=== PATIENT | male | born 1985 | race Caucasian/White ===

== ENCOUNTER 2016-10-14 16:38 | Inpatient (IN) | payer MEDICAID ==
[~2016-10-14] VITALS: Ht 182.9 cm; Wt 67.1 kg
[~2016-10-14 16:38] MED LIST: TRAM50TA92 PO
[2016-10-14 16:40] VITALS: BP_SYST 125
[2016-10-14] MEDS ORDERED: NACL 0.9% 1,000 ML IV ONE ×2 (16:42→18:30)
[2016-10-14] MEDS ORDERED: ONDANSETRON HCL 4 MG/2 ML VIAL IVP ONE (16:45)
[2016-10-14] MEDS ORDERED: MORPHINE 2 MG/ML INJ. SYRINGE IVP ONE (16:45)
[2016-10-14] MEDS ORDERED: KETOROLAC TROMETHAMINE 30 MG VIAL IVP ONE (16:45)
[2016-10-14 17:15] LABS: BASOPHILS % (AUTO) 0.3 % (0.0-2.0); HEMOGLOBIN 15.4 g/dL (14.0-18.0); LYMPHOCYTES # (AUTO) 0.6 K/uL (1.0-5.5); LYMPHOCYTES % (AUTO) 3.8 % (20.5-51.5); MEAN CORPUSCULAR HEMOGLOBIN 33 pg (27-31); MEAN CORPUSCULAR HGB CONC 34 % (32-36); MEAN CORPUSCULAR VOLUME 97 fL (79.0-98.0); MONOCYTES # (AUTO) 0.7 K/uL (0.0-1.0); MONOCYTES % (AUTO) 4.9 % (1.7-9.3); NEUTROPHILS # (AUTO) 13.9 K/uL (1.8-7.7); PLATELET COUNT (AUTO) 213 K/uL (130-430); RED BLOOD CELL COUNT(AUTO) 4.74 MIL/uL (4.2-6.2); RED CELL DISTRIBUTION WIDTH 11.7 % (9.0-15.0); WHITE BLOOD COUNT (AUTO) 15.2 K/uL (4.8-10.8)
[2016-10-14 17:24] LABS: CREATININE 1.47 mg/dL (0.55-1.30); POTASSIUM 3.7 mmol/L (3.5-5.1)
[2016-10-14 17:28] LABS: ALBUMIN 5.4 g/dL (3.4-4.8); INR 1.1 (0.80-1.20); PROTHROMBIN TIME 11.6 SECS (9.5-12.5); TOTAL BILIRUBIN 0.5 mg/dL (0.0-1.0); TOTAL PROTEIN, SERUM 9.1 g/dL (6.4-8.3)
[2016-10-14] MEDS ORDERED: METOCLOPRAMIDE HCL 10 MG/2 ML VIAL IVP ONE (17:45)
[2016-10-14] MEDS ORDERED: DIPHENHYDRAMINE INJ 50 MG/ML VIAL IVP ONE (17:45)
[2016-10-14 19:52] LABS: BILIRUBIN,URINE 2+ (NEGATIVE); BLOOD, URINE NEGATIVE (NEGATIVE); CLARITY/URINE CLOUDY (CLEAR); GLUCOSE,URINE NEGATIVE (NEGATIVE); KETONES,URINE TRACE (NEGATIVE); LEUKOCYTE ESTERASE ,URINE NEGATIVE (NEGATIVE); NITRITE, URINE NEGATIVE (NEGATIVE); PH,URINE 6.5 (5.0-8.0); PROTEIN URINE 3+ (NEGATIVE)
[2016-10-14 19:53] LABS: COLOR,URINE AMBER (YELLOW)
[2016-10-14] MEDS: D5NS 1,000 ML IV SCH (20:01)
[2016-10-14 20:04] LABS: RBC,URINE 0-3 /HPF (0-3)
[2016-10-14 20:05] LABS: BACTERIA,URINE MODERATE /HPF (None Seen); MUCUS,URINE 3+ /LPF (None Seen); URINE AMORPHOUS URATE 2+ /HPF (None Seen)
[2016-10-14 20:11] LABS: BARBITURATE, URINE NEGATIVE (NEG <=200); BENZODIAZEPINE, URINE NEGATIVE (NEG <=150); CANNABINOID, URINE POSITIVE (NEG <=50); COCAINE, URINE NEGATIVE (NEG <=150); METHAMPHETAMINES SCREEN,URINE NEGATIVE (NEG <=500); OPIATE, URINE POSITIVE (NEG <=100); PHENCYCLIDINE SCREEN,URINE NEGATIVE (NEG <=25); UR TRICYCLIC ANTIDEPRESSANTS NEGATIVE (NEG <=300); URINE AMPHETAMINE NEGATIVE (NEG <=500); URINE METHADONE NEGATIVE (NEG <=200); URINE OXYCODONE SCREEN NEGATIVE (NEG <=100); URINE PROPOXYPHENE SCREEN NEGATIVE (NEG <=300)
[2016-10-14 20:12] VITALS: BP_SYST 112
[2016-10-14] MEDS ORDERED: DOCUSATE SODIUM 100 MG CAPSULE PO PRN (21:00)
[2016-10-14] MEDS ORDERED: POTASSIUM CHLORIDE 10 MEQ TAB.PRT.SR PO PRN (21:00)
[2016-10-14] MEDS ORDERED: MAGNESIUM SULFATE 50 ML IV PRN (21:00)
[2016-10-14] MEDS ORDERED: LORazepam 2 MG/ML VIAL IVP PRN (21:00)
[2016-10-14] MEDS ORDERED: cefTRIAXone 1 GM in D5W 50 ML IV SCH (21:00)
[2016-10-14] MEDS ORDERED: ACETAMINOPHEN 325 MG TABLET PO PRN (21:00)
[2016-10-14] MEDS ORDERED: ONDANSETRON HCL 4 MG/2 ML VIAL IVP PRN (21:00)
[2016-10-14] MEDS ORDERED: ZOLPIDEM TARTRATE 5 MG TABLET PO PRN (21:00)
[2016-10-14] MEDS ORDERED: cefTRIAXone 1 GM IVPB PREMIX 50 ML IV ONE (21:27)
[2016-10-14] MEDS: METOCLOPRAMIDE HCL 10 MG TABLET PO SCH (21:35)
[2016-10-14] MEDS: MORPHINE 2 MG/ML INJ. SYRINGE IVP PRN (21:36)
[2016-10-15 00:25] VITALS: BP_SYST 121
[2016-10-15] MEDS: MORPHINE 2 MG/ML INJ. SYRINGE IVP PRN ×3 (04:18→13:20)
[2016-10-15 04:32] VITALS: BP_SYST 100
[2016-10-15] MEDS: D5NS 1,000 ML IV SCH ×2 (04:38→13:21)
[2016-10-15 05:42] VITALS: BP_SYST 100
[2016-10-15] MEDS: METOCLOPRAMIDE HCL 10 MG TABLET PO SCH ×2 (06:20→13:24)
[2016-10-15 07:11] LABS: BASOPHILS % (AUTO) 0.4 % (0.0-2.0); EOSINOPHILS % (AUTO) 0.4 % (0.0-4.0); HEMATOCRIT 36.6 % (36-54); HEMOGLOBIN 12.4 g/dL (14.0-18.0); LYMPHOCYTES % (AUTO) 16.4 % (20.5-51.5); MEAN CORPUSCULAR HEMOGLOBIN 33 pg (27-31); MEAN CORPUSCULAR HGB CONC 34 % (32-36); MEAN CORPUSCULAR VOLUME 98 fL (79.0-98.0); MONOCYTES # (AUTO) 1.7 K/uL (0.0-1.0); MONOCYTES % (AUTO) 13.7 % (1.7-9.3); NEUTROPHILS # (AUTO) 8.8 K/uL (1.8-7.7); NEUTROPHILS % (AUTO) 69.1 % (40.0-70.0); PLATELET COUNT (AUTO) 166 K/uL (130-430); RED BLOOD CELL COUNT(AUTO) 3.73 MIL/uL (4.2-6.2); RED CELL DISTRIBUTION WIDTH 11.6 % (9.0-15.0); WHITE BLOOD COUNT (AUTO) 12.5 K/uL (4.8-10.8)
[2016-10-15 07:17] LABS: CALCIUM 8.5 mg/dL (8.4-11.0); CREATININE 1.19 mg/dL (0.55-1.30); POTASSIUM 3.3 mmol/L (3.5-5.1)
[2016-10-15 08:00] VITALS: BP_SYST 106
[2016-10-15] MEDS ORDERED: CIPR250S2 PO (09:28)
[2016-10-15] MEDS ORDERED: METO-290 PO (09:28)
[2016-10-15 12:00] VITALS: BP_SYST 104
== END 2016-10-15 14:21 | disposition left against medical advice (07) | DRG 463 ==
LOC: SED 16:38 → SMU 19:16
PROVIDERS: ADMIT General Practice; ATTEND General Practice
DX: N39.0 Urinary tract infection, site not specified (principal); N17.0 Acute kidney failure with tubular necrosis; K52.9 Noninfective gastroenteritis and colitis, unspecified; F12.20 Cannabis dependence, uncomplicated; Z53.21 Procedure and treatment not carried out due to patient leaving prior to being seen by health care provider; K21.9 Gastro-esophageal reflux disease without esophagitis; Z71.89 Other specified counseling
CPT/HCPCS: 36415; 80048; 80053; 80307; 81000-TC; 83690-TC; 83735-TC; 85025; 85610-TC; 85730-TC; 87086; 96361; 96374; 96375; 99285; J0696; J1200; J1885; J2270; J2405; J2765; J7030; J7042; J7060; J8597

== ENCOUNTER 2017-02-21 23:46 | Emergency (ER) | payer MEDICAID, MEDICARE ==
[~2017-02-21] VITALS: Ht 185.4 cm; Wt 63.5 kg
[2017-02-21 23:46] VITALS: BP_SYST 97
[~2017-02-21 23:46] MED LIST changes: +CIPR250S2 PO; +METO-290 PO
[2017-02-22] MEDS ORDERED: NACL 0.9% 1,000 ML IV ONE (00:15)
[2017-02-22] MEDS ORDERED: ONDANSETRON HCL 4 MG/2 ML VIAL IVP ONE (00:15)
[2017-02-22] MEDS ORDERED: KETOROLAC TROMETHAMINE 30 MG VIAL IVP ONE (00:15)
[2017-02-22 00:43] LABS: BASOPHILS # (AUTO) 0.1 K/uL (0.0-0.2); BASOPHILS % (AUTO) 0.6 % (0.0-2.0); EOSINOPHILS # (AUTO) 0.1 K/uL (0.0-0.4); EOSINOPHILS % (AUTO) 0.7 % (0.0-4.0); HEMATOCRIT 44.5 % (36-54); HEMOGLOBIN 14.9 g/dL (14.0-18.0); LYMPHOCYTES # (AUTO) 0.8 K/uL (1.0-5.5); LYMPHOCYTES % (AUTO) 7.9 % (20.5-51.5); MEAN CORPUSCULAR HEMOGLOBIN 32 pg (27-31); MEAN CORPUSCULAR HGB CONC 33 % (32-36); MEAN CORPUSCULAR VOLUME 97 fL (79.0-98.0); MONOCYTES # (AUTO) 0.7 K/uL (0.0-1.0); MONOCYTES % (AUTO) 6.1 % (1.7-9.3); NEUTROPHILS % (AUTO) 84.7 % (40.0-70.0); PLATELET COUNT (AUTO) 218 K/uL (130-430); RED CELL DISTRIBUTION WIDTH 12.1 % (9.0-15.0); WHITE BLOOD COUNT (AUTO) 10.7 K/uL (4.8-10.8)
[2017-02-22 01:04] LABS: CALCIUM 10.3 mg/dL (8.4-11.0); CREATININE 1.44 mg/dL (0.55-1.30); POTASSIUM 4.1 mmol/L (3.5-5.1)
[2017-02-22 01:08] LABS: ALBUMIN 4.9 g/dL (3.4-4.8); TOTAL BILIRUBIN 0.6 mg/dL (0.0-1.0)
[2017-02-22] MEDS ORDERED: MORPHINE 2 MG/ML INJ. SYRINGE IVP ONE (01:30)
[2017-02-22] MEDS ORDERED: METOCLOPRAMIDE HCL 10 MG/2 ML VIAL IVP ONE (02:15)
[2017-02-22 02:33] VITALS: BP_SYST 90
== END 2017-02-22 02:33 | disposition home or self-care (01) ==
LOC: SED 23:46
DX: R10.12 Left upper quadrant pain (principal); R03.0 Elevated blood-pressure reading, without diagnosis of hypertension; K21.9 Gastro-esophageal reflux disease without esophagitis
CPT/HCPCS: 36415; 71010; 74176; 80053; 83690; 85025; 96361; 96374; 96375; 99285; J1885; J2270; J2405; J2765; J7030

== ENCOUNTER 2017-06-06 15:40 | Inpatient (IN) | payer MEDICARE ==
[~2017-06-06] VITALS: Ht 182.9 cm; Wt 59.0 kg
[2017-06-06 15:47] VITALS: BP_SYST 132
[2017-06-06] MEDS ORDERED: ONDANSETRON HCL 4 MG/2 ML VIAL IVP ONE (16:00)
[2017-06-06] MEDS ORDERED: MORPHINE SULFATE 10 MG/ML VIAL IVP ONE ×2 (16:00→17:30)
[2017-06-06] MEDS ORDERED: NACL 0.9% 1,000 ML IV ONE ×2 (16:00)
[2017-06-06 16:31] LABS: HEMATOCRIT 54.7 % (36-54); HEMOGLOBIN 18.5 g/dL (14.0-18.0); INR 1.1 (0.80-1.20); MEAN CORPUSCULAR HEMOGLOBIN 33 pg (27-31); MEAN CORPUSCULAR HGB CONC 34 % (32-36); MEAN CORPUSCULAR VOLUME 97 fL (79.0-98.0); PLATELET COUNT (AUTO) 324 K/uL (130-430); PROTHROMBIN TIME 11.5 SECS (9.5-12.5); RED BLOOD CELL COUNT(AUTO) 5.64 MIL/uL (4.2-6.2); RED CELL DISTRIBUTION WIDTH 11.4 % (9.0-15.0); WHITE BLOOD COUNT (AUTO) 29.4 K/uL (4.8-10.8)
[2017-06-06 16:32] LABS: POTASSIUM 3.1 mmol/L (3.5-5.1)
[2017-06-06 16:39] LABS: BAND % (MANUAL) 2 % (0-6); BASOPHILS % (MANUAL) 0 % (0-2); EOSINOPHILS % (MANUAL) 0 % (0-7); LYMPHOCYTES % (MANUAL) 4 % (20-46); MONOCYTES % (MANUAL) 5 % (0-11)
[2017-06-06 16:55] LABS: CREATININE 10.69 mg/dL (0.55-1.30)
[2017-06-06] MEDS ORDERED: VANCOMYCIN HCL 1000 MG/VIAL IV ONE (17:12)
[2017-06-06] MEDS ORDERED: VANCOMYCIN HCL 1,000 MG in NS 250 ML IV ONE (17:15)
[2017-06-06] MEDS ORDERED: POTASSIUM CHLORIDE 20 MEQ TAB.PRT.SR PO ONE (17:15)
[2017-06-06] MEDS: D5NS 1,000 ML IV SCH ×2 (18:09→20:11)
[2017-06-06] MEDS ORDERED: METOCLOPRAMIDE HCL 10 MG/2 ML VIAL IVP PRN (18:15)
[2017-06-06 18:20] VITALS: BP_SYST 129
[2017-06-06 19:30] VITALS: BP_SYST 130
[2017-06-06] MEDS: PANTOPRAZOLE SODIUM 40 MG/VIAL (PROTONIX) IVP SCH (21:26)
[2017-06-06] MEDS: MORPHINE 2 MG/ML INJ. SYRINGE IVP PRN (21:32)
[2017-06-06 21:54] LABS: BILIRUBIN,URINE NEGATIVE (NEGATIVE); BLOOD, URINE 3+ (NEGATIVE); CLARITY/URINE SL HAZY (CLEAR); COLOR,URINE YELLOW (YELLOW); GLUCOSE,URINE NEGATIVE (NEGATIVE); KETONES,URINE NEGATIVE (NEGATIVE); LEUKOCYTE ESTERASE ,URINE NEGATIVE (NEGATIVE); NITRITE, URINE NEGATIVE (NEGATIVE); PROTEIN URINE 2+ (NEGATIVE); UROBILINOGEN,URINE 0.2 (0.2-1.0)
[2017-06-06 22:09] LABS: BARBITURATE, URINE NEGATIVE (NEG <=200); BENZODIAZEPINE, URINE NEGATIVE (NEG <=150); CANNABINOID, URINE POSITIVE (NEG <=50); COCAINE, URINE NEGATIVE (NEG <=150); METHAMPHETAMINES SCREEN,URINE NEGATIVE (NEG <=500); OPIATE, URINE POSITIVE (NEG <=100); PHENCYCLIDINE SCREEN,URINE NEGATIVE (NEG <=25); UR TRICYCLIC ANTIDEPRESSANTS NEGATIVE (NEG <=300); URINE AMPHETAMINE NEGATIVE (NEG <=500); URINE METHADONE NEGATIVE (NEG <=200); URINE OXYCODONE SCREEN NEGATIVE (NEG <=100); URINE PROPOXYPHENE SCREEN NEGATIVE (NEG <=300)
[2017-06-06 22:13] LABS: BACTERIA,URINE MODERATE /HPF (None Seen)
[2017-06-06 22:14] LABS: HYALINE CASTS, URINE 0-10 /LPF (None Seen); URINE AMORPHOUS URATE 1+ /HPF (None Seen)
[2017-06-07 00:35] VITALS: BP_SYST 142
[2017-06-07] MEDS: MORPHINE 2 MG/ML INJ. SYRINGE IVP PRN ×6 (02:02→21:44)
[2017-06-07 06:05] LABS: BASOPHILS % (AUTO) 0.1 % (0.0-2.0); EOSINOPHILS % (AUTO) 0.2 % (0.0-4.0); HEMATOCRIT 43.7 % (36-54); HEMOGLOBIN 14.8 g/dL (14.0-18.0); LYMPHOCYTES # (AUTO) 0.6 K/uL (1.0-5.5); LYMPHOCYTES % (AUTO) 2.8 % (20.5-51.5); MEAN CORPUSCULAR HEMOGLOBIN 33 pg (27-31); MEAN CORPUSCULAR HGB CONC 34 % (32-36); MEAN CORPUSCULAR VOLUME 98 fL (79.0-98.0); MONOCYTES # (AUTO) 2.7 K/uL (0.0-1.0); MONOCYTES % (AUTO) 11.7 % (1.7-9.3); NEUTROPHILS # (AUTO) 19.9 K/uL (1.8-7.7); NEUTROPHILS % (AUTO) 85.2 % (40.0-70.0); PLATELET COUNT (AUTO) 210 K/uL (130-430); RED BLOOD CELL COUNT(AUTO) 4.48 MIL/uL (4.2-6.2); RED CELL DISTRIBUTION WIDTH 11.2 % (9.0-15.0); WHITE BLOOD COUNT (AUTO) 23.2 K/uL (4.8-10.8)
[2017-06-07 06:26] LABS: ALBUMIN 4.1 g/dL (3.4-4.8); CALCIUM 8.3 mg/dL (8.4-11.0); CREATININE 6.03 mg/dL (0.55-1.30); TOTAL BILIRUBIN 0.8 mg/dL (0.0-1.0)
[2017-06-07] MEDS: D5NS 1,000 ML IV SCH ×3 (07:35→21:43)
[2017-06-07 08:20] VITALS: BP_SYST 139
[2017-06-07] MEDS: PANTOPRAZOLE SODIUM 40 MG/VIAL (PROTONIX) IVP SCH ×2 (09:26→21:44)
[2017-06-07] MEDS: ONDANSETRON HCL 4 MG/2 ML VIAL IVP PRN ×2 (11:39→21:44)
[2017-06-07 12:21] VITALS: BP_SYST 122
[2017-06-07] MEDS ORDERED: POTASSIUM CHLORIDE 40 MEQ, LIDOCAINE JECT 2% PF 100 MG 75 MG in NS 250 ML IV ONE (13:00)
[2017-06-07 16:02] VITALS: BP_SYST 140
[2017-06-07] MEDS ORDERED: ACYCLOVIR 400 MG TABLET PO ONE (17:00)
[2017-06-07] MEDS: cefTRIAXone 1 GM in D5W 50 ML IV SCH (17:22)
[2017-06-07 20:03] VITALS: BP_SYST 141
[2017-06-08 00:22] VITALS: BP_SYST 137
[2017-06-08] MEDS: MORPHINE 2 MG/ML INJ. SYRINGE IVP PRN ×5 (01:41→18:14)
[2017-06-08] MEDS: D5NS 1,000 ML IV SCH ×4 (04:31→22:28)
[2017-06-08 07:34] LABS: CALCIUM 8.3 mg/dL (8.4-11.0); CREATININE 1.69 mg/dL (0.55-1.30); POTASSIUM 3.1 mmol/L (3.5-5.1)
[2017-06-08 09:30] VITALS: BP_SYST 136
[2017-06-08] MEDS: ACYCLOVIR 400 MG TABLET PO SCH ×2 (09:35→22:27)
[2017-06-08] MEDS: PANTOPRAZOLE SODIUM 40 MG/VIAL (PROTONIX) IVP SCH ×2 (09:35→22:26)
[2017-06-08 12:45] VITALS: BP_SYST 122
[2017-06-08] MEDS ORDERED: POTASSIUM CHLORIDE 40 MEQ, LIDOCAINE JECT 2% PF 100 MG 75 MG in NS 250 ML IV ONE (13:00)
[2017-06-08 16:15] VITALS: BP_SYST 113
[2017-06-08] MEDS: cefTRIAXone 1 GM in D5W 50 ML IV SCH (18:07)
[2017-06-08 19:00] VITALS: BP_SYST 134
[2017-06-08 20:00] VITALS: BP_SYST 134
[2017-06-08] MEDS ORDERED: MORPHINE SULFATE 10 MG/ML VIAL ONE (22:18)
[2017-06-08] MEDS: MORPHINE 4 MG/ML INJ. SYRINGE IVP PRN (22:24)
[2017-06-09] MEDS ORDERED: ALBUTEROL SULFATE 0.083% 2.5 MG/3 ML VIAL.NEB INH PRN (01:30)
[2017-06-09 01:39] VITALS: BP_SYST 134
[2017-06-09] MEDS: BENZOCAINE/MENTHOL 1 EACH LOZENGE MM PRN ×2 (01:45→06:21)
[2017-06-09] MEDS: PROMETHAZINE 6.25 MG/ CODEINE 10 MG/ 5 ML PO PRN ×3 (01:45→06:22)
[2017-06-09] MEDS ORDERED: MORPHINE SULFATE 10 MG/ML VIAL ONE ×2 (02:02→06:15)
[2017-06-09] MEDS: MORPHINE 4 MG/ML INJ. SYRINGE IVP PRN ×2 (02:05→06:20)
[2017-06-09] MEDS: ALBUTEROL SULFATE 0.083% 2.5 MG/3 ML VIAL.NEB INH SCH ×4 (02:43→15:00)
[2017-06-09 02:51] VITALS: BP_SYST 134
[2017-06-09] MEDS: D5NS 1,000 ML IV SCH ×2 (06:09→15:00)
[2017-06-09 08:00] VITALS: BP_SYST 126
[2017-06-09 08:35] LABS: BASOPHILS % (AUTO) 0.5 % (0.0-2.0); EOSINOPHILS # (AUTO) 0.3 K/uL (0.0-0.4); EOSINOPHILS % (AUTO) 4.5 % (0.0-4.0); HEMATOCRIT 36.4 % (36-54); HEMOGLOBIN 12.5 g/dL (14.0-18.0); LYMPHOCYTES # (AUTO) 1.4 K/uL (1.0-5.5); LYMPHOCYTES % (AUTO) 21.7 % (20.5-51.5); MEAN CORPUSCULAR HEMOGLOBIN 33 pg (27-31); MEAN CORPUSCULAR HGB CONC 34 % (32-36); MEAN CORPUSCULAR VOLUME 97 fL (79.0-98.0); MONOCYTES # (AUTO) 1.1 K/uL (0.0-1.0); MONOCYTES % (AUTO) 16.5 % (1.7-9.3); NEUTROPHILS # (AUTO) 3.6 K/uL (1.8-7.7); NEUTROPHILS % (AUTO) 56.8 % (40.0-70.0); PLATELET COUNT (AUTO) 143 K/uL (130-430); RED BLOOD CELL COUNT(AUTO) 3.75 MIL/uL (4.2-6.2); RED CELL DISTRIBUTION WIDTH 10.9 % (9.0-15.0); WHITE BLOOD COUNT (AUTO) 6.4 K/uL (4.8-10.8)
[2017-06-09] MEDS: PANTOPRAZOLE SODIUM 40 MG/VIAL (PROTONIX) IVP SCH (08:41)
[2017-06-09 08:42] LABS: CALCIUM 8.4 mg/dL (8.4-11.0); CREATININE 1.08 mg/dL (0.55-1.30); POTASSIUM 3.3 mmol/L (3.5-5.1)
[2017-06-09] MEDS: ACYCLOVIR 400 MG TABLET PO SCH (08:42)
[2017-06-09] MEDS ORDERED: POTASSIUM CHLORIDE 20 MEQ TAB.PRT.SR PO ONE (10:15)
[2017-06-09] MEDS: MORPHINE SULFATE 10 MG/ML VIAL IVP PRN ×2 (10:37→16:04)
[2017-06-09 12:45] VITALS: BP_SYST 113
[2017-06-09] MEDS: cefTRIAXone 1 GM in D5W 50 ML IV SCH (16:20)
[2017-06-09 16:30] VITALS: BP_SYST 116
[2017-07-05] MEDS ORDERED: OMEP-268 PO (21:20)
== END 2017-06-09 17:45 | disposition left against medical advice (07) | DRG 383 ==
LOC: SED 15:40 → STU 17:45 → SMU 06-08 10:38
PROVIDERS: ADMIT Internal Medicine Hospice and Palliative Medicine; ATTEND Internal Medicine Hospice and Palliative Medicine
DX: B02.9 Zoster without complications (principal); N17.0 Acute kidney failure with tubular necrosis; K52.9 Noninfective gastroenteritis and colitis, unspecified; E86.0 Dehydration; K21.9 Gastro-esophageal reflux disease without esophagitis; F12.10 Cannabis abuse, uncomplicated; E87.6 Hypokalemia; Z53.21 Procedure and treatment not carried out due to patient leaving prior to being seen by health care provider; D72.829 Elevated white blood cell count, unspecified; Z83.0 Family history of human immunodeficiency virus [HIV] disease
CPT/HCPCS: 36415; 80048; 80053; 80307; 81000-TC; 83605; 83690-TC; 85007; 85025; 85027; 85610-TC; 85730-TC; 87040-TC; 87086; 94640; 96365; 96366; 96375; 96376; 99285; C9113; G0378; J0696; J2270; J2405; J3370; J3480; J7042; J7050; J7060

== ENCOUNTER 2017-07-05 14:05 | Inpatient (IN) | payer MEDICARE ==
[~2017-07-05] VITALS: Ht 182.9 cm; Wt 59.0 kg
[2017-07-05 14:12] VITALS: BP_SYST 109
[2017-07-05] MEDS ORDERED: NACL 0.9% 1,000 ML IV ONE ×2 (14:26→17:45)
[2017-07-05] MEDS ORDERED: DIPHENHYDRAMINE INJ 50 MG/ML VIAL IVP ONE (14:30)
[2017-07-05] MEDS ORDERED: MORPHINE 4 MG/ML INJ. SYRINGE IVP ONE (14:30)
[2017-07-05] MEDS ORDERED: ONDANSETRON HCL 4 MG/2 ML VIAL IVP ONE ×2 (14:30→18:00)
[2017-07-05 14:52] LABS: MEAN CORPUSCULAR HEMOGLOBIN 32 pg (27-31); MEAN CORPUSCULAR HGB CONC 33 % (32-36); MEAN CORPUSCULAR VOLUME 97 fL (79.0-98.0)
[2017-07-05 14:55] LABS: BASOPHILS # (AUTO) 0.2 K/uL (0.0-0.2); BASOPHILS % (AUTO) 1.7 % (0.0-2.0); HEMATOCRIT 44.7 % (36-54); HEMOGLOBIN 14.7 g/dL (14.0-18.0); LYMPHOCYTES # (AUTO) 0.9 K/uL (1.0-5.5); LYMPHOCYTES % (AUTO) 7.5 % (20.5-51.5); MONOCYTES # (AUTO) 0.6 K/uL (0.0-1.0); MONOCYTES % (AUTO) 5.2 % (1.7-9.3); NEUTROPHILS # (AUTO) 10.5 K/uL (1.8-7.7); NEUTROPHILS % (AUTO) 85.6 % (40.0-70.0); PLATELET COUNT (AUTO) 302 K/uL (130-430); RED BLOOD CELL COUNT(AUTO) 4.62 MIL/uL (4.2-6.2); RED CELL DISTRIBUTION WIDTH 11.7 % (9.0-15.0); WHITE BLOOD COUNT (AUTO) 12.2 K/uL (4.8-10.8)
[2017-07-05 15:28] LABS: CREATININE 2.38 mg/dL (0.55-1.30); POTASSIUM 3.1 mmol/L (3.5-5.1)
[2017-07-05 15:32] LABS: ALBUMIN 5.6 g/dL (3.4-4.8); TOTAL BILIRUBIN 0.6 mg/dL (0.0-1.0)
[2017-07-05] MEDS ORDERED: KETOROLAC TROMETHAMINE 30 MG VIAL IVP ONE (16:45)
[2017-07-05 18:50] LABS: CALCIUM 9.9 mg/dL (8.4-11.0); CREATININE 2.16 mg/dL (0.55-1.30); POTASSIUM 3.5 mmol/L (3.5-5.1)
[2017-07-05] MEDS ORDERED: ONDANSETRON HCL 4 MG/2 ML VIAL IVP PRN (19:30)
[2017-07-05] MEDS ORDERED: PANTOPRAZOLE SODIUM 40 MG/VIAL (PROTONIX) IVP ONE (19:30)
[2017-07-05] MEDS ORDERED: NACL 0.9% 1,000 ML IV SCH (19:30)
[2017-07-05] MEDS ORDERED: LORazepam 2 MG/ML VIAL IVP ONE (19:30)
[2017-07-05 20:55] VITALS: BP_SYST 118
[2017-07-05] MEDS ORDERED: OMEP-130 PO (21:20)
[2017-07-05] MEDS ORDERED: MORPHINE 4 MG/ML INJ. SYRINGE IVP PRN (21:30)
[2017-07-05] MEDS ORDERED: NON-FORMULARY MEDICATION (Omeprazole 20 MG) PO SCH (22:15)
== END 2017-07-05 21:37 | disposition left against medical advice (07) | DRG 469 ==
LOC: SED 14:05 → SMU 19:22
PROVIDERS: ADMIT Internal Medicine; ATTEND Internal Medicine
DX: N17.0 Acute kidney failure with tubular necrosis (principal); E86.0 Dehydration; K21.9 Gastro-esophageal reflux disease without esophagitis; E87.6 Hypokalemia; Z53.21 Procedure and treatment not carried out due to patient leaving prior to being seen by health care provider; Z79.899 Other long term (current) drug therapy
CPT/HCPCS: 36415; 74018; 80048; 80053; 83690-TC; 85025; J1200; J1885; J2270; J2405; J7030

== ENCOUNTER 2018-01-11 09:11 | Emergency (ER) | payer MEDICARE ==
[~2018-01-11] VITALS: Ht 182.9 cm; Wt 59.0 kg
[~2018-01-11 09:11] MED LIST changes: -CIPR250S2 PO; -METO-290 PO; +OMEP-268 PO; -TRAM50TA92 PO
[2018-01-11 09:18] VITALS: BP_SYST 122
[2018-01-11] MEDS: NACL 0.9% 1,000 ML IV ONE (09:49)
[2018-01-11] MEDS: KETOROLAC TROMETHAMINE 15 MG VIAL IVP ONE (09:52)
[2018-01-11] MEDS: HALOPERIDOL LACTATE 5 MG/ML VIAL IVP ONE (09:57)
[2018-01-11 10:01] LABS: LYMPHOCYTES # (AUTO) 0.5 K/uL (1.0-5.5); MONOCYTES # (AUTO) 0.3 K/uL (0.0-1.0)
[2018-01-11 10:12] LABS: CALCIUM 10.4 mg/dL (8.4-11.0); CREATININE 1.86 mg/dL (0.55-1.30); POTASSIUM 4.1 mmol/L (3.5-5.1)
[2018-01-11 10:13] VITALS: BP_SYST 131
[2018-01-11 10:17] LABS: ALBUMIN 5.4 g/dL (3.4-4.8); BASOPHILS # (AUTO) 0.3 K/uL (0.0-0.2); BASOPHILS % (AUTO) 1.9 % (0.0-2.0); EOSINOPHILS % (AUTO) 0.1 % (0.0-4.0); HEMATOCRIT 40.2 % (36-54); HEMOGLOBIN 13.7 g/dL (14.0-18.0); LYMPHOCYTES % (AUTO) 3.3 % (20.5-51.5); MEAN CORPUSCULAR HEMOGLOBIN 34 pg (27-31); MEAN CORPUSCULAR HGB CONC 34 % (32-36); MEAN CORPUSCULAR VOLUME 99 fL (79.0-98.0); MONOCYTES % (AUTO) 1.7 % (1.7-9.3); NEUTROPHILS # (AUTO) 15.5 K/uL (1.8-7.7); PLATELET COUNT (AUTO) 242 K/uL (130-430); RED BLOOD CELL COUNT(AUTO) 4.05 MIL/uL (4.2-6.2); RED CELL DISTRIBUTION WIDTH 12.1 % (9.0-15.0); TOTAL BILIRUBIN 0.5 mg/dL (0.0-1.0); WHITE BLOOD COUNT (AUTO) 16.6 K/uL (4.8-10.8)
[2018-01-11 10:25] LABS: BILIRUBIN,URINE 1+ (NEGATIVE); CLARITY/URINE SL HAZY (CLEAR); COLOR,URINE BROWN (YELLOW); GLUCOSE,URINE NEGATIVE (NEGATIVE); KETONES,URINE TRACE (NEGATIVE); LEUKOCYTE ESTERASE ,URINE NEGATIVE (NEGATIVE); NITRITE, URINE POSITIVE (NEGATIVE); PROTEIN URINE 3+ (NEGATIVE); UROBILINOGEN,URINE 0.2 (0.2-1.0)
[2018-01-11 10:27] LABS: BLOOD, URINE TRACE (NEGATIVE)
[2018-01-11 10:40] LABS: BACTERIA,URINE MODERATE /HPF (None Seen); HYALINE CASTS, URINE 0-10 /LPF (None Seen); WBC,URINE 0-3 /HPF (0-3); YEAST,URINE None Seen /HPF (None Seen)
[2018-01-11 10:41] LABS: FINE GRANULAR CASTS,URINE 0-10 /LPF (None Seen); MUCUS,URINE 3+ /LPF (None Seen)
[2018-01-11 10:45] LABS: CANNABINOID, URINE POSITIVE (NEG <=50); OPIATE, URINE POSITIVE (NEG <=100)
[2018-01-11 10:46] LABS: BARBITURATE, URINE NEGATIVE (NEG <=200); BENZODIAZEPINE, URINE NEGATIVE (NEG <=150); COCAINE, URINE NEGATIVE (NEG <=150); METHAMPHETAMINES SCREEN,URINE NEGATIVE (NEG <=500); PHENCYCLIDINE SCREEN,URINE NEGATIVE (NEG <=25); UR TRICYCLIC ANTIDEPRESSANTS NEGATIVE (NEG <=300); URINE AMPHETAMINE NEGATIVE (NEG <=500); URINE METHADONE NEGATIVE (NEG <=200); URINE OXYCODONE SCREEN NEGATIVE (NEG <=100); URINE PROPOXYPHENE SCREEN POSITIVE (NEG <=300)
[2018-01-11] MEDS: DIPHENHYDRAMINE INJ 50 MG/ML VIAL IVP ONE (12:15)
[2018-01-11] MEDS: fentaNYL CITRATE/PF 100 MCG/2 ML AMP IVP ONE (12:15)
== END 2018-01-11 12:15 | disposition left against medical advice (07) ==
LOC: SED 09:11
DX: R10.9 Unspecified abdominal pain (principal); J44.9 Chronic obstructive pulmonary disease, unspecified; K21.9 Gastro-esophageal reflux disease without esophagitis
CPT/HCPCS: 36415; 80053; 80307; 81000; 83690; 85025; 87086; 96361; 96374; 96375; 99284; J1630; J1885; J3010; J7030; J1200

== ENCOUNTER 2018-09-06 10:27 | Emergency (ER) | payer BC ==
[~2018-09-06] VITALS: Ht 182.9 cm; Wt 65.8 kg
--- NOTE | 2018-09-06 10:27 | NUR ---
BROUGHT BACK TO BED #8 AND TRIAGED. REPORT GIVEN TO LANCE
--- NOTE | 2018-09-06 10:40 | NUR ---
Placed on quality assurance monitor chassis, blood pressure machine, and pulse oximeter. To gown for exam. Side rails up x1. PATIENT SITTING UP ON BED. AAOx4. RESPIRATIONS EVEN AND UNLABORED. NO SOB. DENIES OF ANY CHEST PAIN, NAUSEA, VOMITING, DIZZINESS, NUMBNESS, OR TINGLING. PATIENT WITH C/O SYNCOPAL EPISODE THIS AM WHILE HE WAS SITTING ON THE COUCH. PER PT, SYNCOPAL EPISODE WAS WITNESSED BY HIS GIRLFRIEND AND LASTED FOR "ONLY A COUPLE SECONDS." DENIES OF ANY HEAD TRAUMA. PT WITH x1 EPISODE OF EPISTAXIS THIS AM. DENIES OF ANY NASAL TRAUMA. PT ALSO WITH C/O INTERMITTENT HEADACHES WHICH ARE ACCOMPANIED WITH BLURRED VISION x3 MONTHS. DENIES OF ANY VISION LOSS. HEADACHE = 8/10 AT THIS TIME. ICE PACK OFFERED FOR PAIN, BUT PT REFUSED. PATIENT IN NO ACUTE DISTRESS. REST AND RELAXATION ENCOURAGED. MD AWARE OF PT CONDITION AND CHIEF COMPLAINT. AWAITING ORDERS.
--- NOTE | 2018-09-06 10:43 | NUR ---
ER Dr. PELAEZ at bedside examining patient.
--- NOTE | 2018-09-06 11:00 | NUR ---
Patient resting quietly. No acute distress noted.
[2018-09-06 11:14] LABS: BASOPHILS % (AUTO) 1.1 % (0.0-2.0); EOSINOPHILS # (AUTO) 0.2 K/uL (0.0-0.4); EOSINOPHILS % (AUTO) 4.5 % (0.0-4.0); HEMATOCRIT 36.9 % (36-54); HEMOGLOBIN 12.6 g/dL (14.0-18.0); LYMPHOCYTES # (AUTO) 1.7 K/uL (1.0-5.5); LYMPHOCYTES % (AUTO) 45.7 % (20.5-51.5); MEAN CORPUSCULAR HEMOGLOBIN 33 pg (27-31); MEAN CORPUSCULAR HGB CONC 34 % (32-36); MEAN CORPUSCULAR VOLUME 96 fL (79.0-98.0); MONOCYTES # (AUTO) 0.5 K/uL (0.0-1.0); MONOCYTES % (AUTO) 12.8 % (1.7-9.3); NEUTROPHILS # (AUTO) 1.3 K/uL (1.8-7.7); NEUTROPHILS % (AUTO) 35.9 % (40.0-70.0); PLATELET COUNT (AUTO) 179 K/uL (130-430); RED BLOOD CELL COUNT(AUTO) 3.86 MIL/uL (4.2-6.2); WHITE BLOOD COUNT (AUTO) 3.6 K/uL (4.8-10.8)
[2018-09-06 11:25] LABS: CALCIUM 8.9 mg/dL (8.4-11.0); CREATININE 0.87 mg/dL (0.55-1.30); POTASSIUM 3.8 mmol/L (3.5-5.1)
[2018-09-06 11:28] LABS: PROTHROMBIN TIME 10.5 SECS (9.5-12.5)
[2018-09-06 11:30] LABS: ALBUMIN 3.8 g/dL (3.4-4.8); TOTAL BILIRUBIN 0.5 mg/dL (0.0-1.0)
--- NOTE | 2018-09-06 12:10 | NUR ---
Patient resting quietly. No acute distress noted. REPORT GIVEN AND CARE TRANSFERRED TO LILY OLGUIN.
--- NOTE | 2018-09-06 12:50 | NUR ---
PATIENT VERY UPSET THAT CT RESULTS HAVE NOT BEEN RESULTED YET. PATIENT MADE AWARE THAT MD WILL FOLLOW-UP WITH RESULTS AT THIS TIME.
--- NOTE | 2018-09-06 12:55 | NUR ---
PATIENT REFUSED TO HAVE VITAL SIGNS RE-CHECKED. PATIENT STATES, "I AM OVER ALL THIS AND I'M NOT DOING ANY VITAL SIGNS."
--- NOTE | 2018-09-06 13:00 | NUR ---
PATIENT REQUESTING FOR PAIN MEDICATIONS FOR HEADACHE = 02/15. REST AND RELAXATION ENCOURAGED. ICE PACK OFFERED BUT PT DECLINED. DR. PELAEZ MADE AWARE. NEW ORDER FOR 30MG OF TORADOL IM GIVEN. ORDERS NOTED AND TO BE CARRIED OUT.
--- NOTE | 2018-09-06 13:05 | NUR ---
PATIENT REFUSED TORADOL. DR. PELAEZ AT BEDSIDE AND SPEAKING WITH PATIENT.
--- NOTE | 2018-09-06 13:14 | NUR ---
PER DR. PELAEZ, PATIENT REFUSED TORADOL AND ANY OTHER PAIN MEDICATIONS AT THIS TIME.
[2018-09-06] MEDS ORDERED: KETOROLAC TROMETHAMINE 30 MG VIAL IM ONE (13:15)
--- NOTE | 2018-09-06 13:15 | NUR ---
MD discussed with patient the results and treatment provided. Patient given verbal discharge instructions and verbalizes understanding. PATIENT REFUSED WRITTEN DISCHARGE INSTRUCTIONS AND PATIENT REFUSED TO SIGN DISCHARGE PAPERS. PATIENT STATED, "I'M OVER THIS. I HAVE BEEN WAITING HERE FOR TOO LONG." PATIENT DID NOT WANT VITALS RE-CHECKED AND REFUSED FOR ID arm band removed. No Rx given. Patient educated on pain management and to follow up with PMD. PATIENT NOTED TO BE IN STABLE CONDITION AND WITH A STABLE GAIT.
[2018-09-06] MEDS ORDERED: KETOROLAC TROMETHAMINE 30 MG VIAL ONE (13:19)
== END 2018-09-06 13:15 | disposition home or self-care (01) ==
LOC: SED 10:27
DX: R55 Syncope and collapse (principal); J44.9 Chronic obstructive pulmonary disease, unspecified; K21.9 Gastro-esophageal reflux disease without esophagitis; R03.0 Elevated blood-pressure reading, without diagnosis of hypertension
CPT/HCPCS: 36415; 70450; 80053; 85025; 85610; 85730; 99284; J1885; 93005

== ENCOUNTER 2019-05-07 12:30 | Emergency (ER) | payer BC ==
[~2019-05-07] VITALS: Ht 182.9 cm; Wt 68.0 kg
[2019-05-07 13:18] VITALS: BP_SYST 110
--- NOTE | 2019-05-07 13:21 | NUR ---
Per registration ,pt [facility]BS
== END 2019-05-07 13:21 | disposition left against medical advice (07) ==
LOC: SED 12:30
DX: S69.90XA Unspecified injury of unspecified wrist, hand and finger(s), initial encounter (principal); Z53.21 Procedure and treatment not carried out due to patient leaving prior to being seen by health care provider

== ENCOUNTER 2022-12-19 14:45 | Emergency (ER) | payer BC, OTHER ==
[~2022-12-19] VITALS: Ht 167.6 cm; Wt 63.5 kg
[2022-12-19 14:53] VITALS: BP_SYST 98; PULSE 89; RESP 22; TEMP 98.3; O2SAT 98
[2022-12-19] MEDS ORDERED: KETOROLAC TROMETHAMINE 30 MG VIAL IM ONE (15:15)
[2022-12-19] MEDS ORDERED: ONDANSETRON 4 MG ODT TAB PO ONE (15:15)
[2022-12-19] MEDS ORDERED: DEXAMETHASONE SOD PHOSPHATE 10 MG/ML VIAL PO ONE (15:15)
[2022-12-19] MEDS ORDERED: IBUP-1971 PO (16:21)
[2022-12-19] MEDS ORDERED: DEC4 PO (16:21)
[2022-12-19] MEDS ORDERED: AUG875 PO (16:21)
[2022-12-19 16:54] VITALS: BP_SYST 98; PULSE 89; RESP 22; TEMP 98.3; O2SAT 98
== END 2022-12-19 16:55 | disposition home or self-care (01) ==
LOC: SED 14:45
DX: J02.9 Acute pharyngitis, unspecified (principal); Z79.899 Other long term (current) drug therapy
CPT/HCPCS: 99283; 86403; 36415; 96372; 87081; Q0162; J1100; J1885

== ENCOUNTER 2023-07-08 14:00 | Emergency (ER) | payer OTHER ==
[~2023-07-08] VITALS: Ht 185.4 cm; Wt 70.3 kg
[~2023-07-08 14:00] MED LIST changes: +AUG875 PO; +DEC4 PO; +IBUP-1971 PO
[2023-07-08 14:12] VITALS: BP_SYST 129; PULSE 80; RESP 18; TEMP 98.7; O2SAT 97
[2023-07-08] MEDS ORDERED: IBUP-1971 PO (15:59)
[2023-07-08] MEDS ORDERED: HYDR-3917 PO ×2 (15:59→16:06)
[2023-07-08 16:14] VITALS: BP_SYST 129; PULSE 80; RESP 18; TEMP 98.7; O2SAT 97
== END 2023-07-08 16:13 | disposition home or self-care (01) ==
LOC: SED 14:00
DX: S00.83XA Contusion of other part of head, initial encounter (principal); J44.9 Chronic obstructive pulmonary disease, unspecified; K21.9 Gastro-esophageal reflux disease without esophagitis; Z79.899 Other long term (current) drug therapy; W23.1XXA Caught, crushed, jammed, or pinched between stationary objects, initial encounter; Y93.89 Activity, other specified; Y92.89 Other specified places as the place of occurrence of the external cause; Y99.8 Other external cause status
CPT/HCPCS: 99283

== ENCOUNTER 2023-08-04 11:38 | Inpatient (IN) | payer OTHER ==
[~2023-08-04] VITALS: Ht 185.4 cm; Wt 61.2 kg
[~2023-08-04 11:38] MED LIST changes: +HYDR-3917 PO
[2023-08-04 11:47] VITALS: BP_SYST 135; PULSE 125; RESP 18; TEMP 98.3; O2SAT 96
[2023-08-04] MEDS: NACL 0.9% 2,000 ML IV ONE (12:38)
[2023-08-04] MEDS: ONDANSETRON HCL 4 MG/2 ML VIAL IVP ONE (12:38)
[2023-08-04] MEDS: MORPHINE 4 MG INJ. 4 MG/ML VIAL IVP ONE (12:49)
[2023-08-04 12:51] LABS: BASOPHILS % (AUTO) 0.1 % (0.0-2.0); HEMATOCRIT 53.3 % (36-54); HEMOGLOBIN 18.9 g/dL (14.0-18.0); LYMPHOCYTES # (AUTO) 0.7 K/uL (1.0-5.5); LYMPHOCYTES % (AUTO) 2.8 % (20.5-51.5); MEAN CORPUSCULAR HEMOGLOBIN 34 pg (27-31); MEAN CORPUSCULAR HGB CONC 36 % (32-36); MEAN CORPUSCULAR VOLUME 95 fL (79.0-98.0); MONOCYTES # (AUTO) 2.3 K/uL (0.0-1.0); MONOCYTES % (AUTO) 8.9 % (1.7-9.3); NEUTROPHILS # (AUTO) 22.6 K/uL (1.8-7.7); PLATELET COUNT (AUTO) 260 K/uL (130-430); RED BLOOD CELL COUNT(AUTO) 5.63 MIL/uL (4.2-6.2); RED CELL DISTRIBUTION WIDTH 12.5 % (9.0-15.0); WHITE BLOOD COUNT (AUTO) 25.7 K/uL (4.8-10.8)
[2023-08-04 13:01] LABS: BILIRUBIN,DIRECT 0.2 mg/dL (0.0-0.3); CALCIUM 10.1 mg/dL (8.4-11.0); CREATININE 7.33 mg/dL (0.55-1.30); POTASSIUM 3.2 mmol/L (3.5-5.1); TOTAL BILIRUBIN 1.1 mg/dL (0.0-1.0); TOTAL PROTEIN, SERUM 11.6 g/dL (6.4-8.3)
[2023-08-04] MEDS ORDERED: hydrALAZINE HCL 20 MG/ML VIAL ONE (13:24)
[2023-08-04] MEDS ORDERED: PIPERACILLIN/TAZOBACTAM 3.375 GM/VIAL (ZOSYN) IV ONE (13:38)
[2023-08-04] MEDS: PIPERACILLIN/TAZO 3.375 GM in NS 50 ML IV ONE (13:42)
[2023-08-04] MEDS: NACL 0.9% 1,000 ML IV ONE (14:00)
[2023-08-04] MEDS ORDERED: HYDROcodone/ACETAMIN 5-325 MG TAB (NORCO/ VICODIN) PO PRN (14:00)
[2023-08-04] MEDS ORDERED: ACETAMINOPHEN 325 MG TABLET PO PRN (14:00)
[2023-08-04] MEDS: PANTOPRAZOLE SODIUM 40 MG/VIAL (PROTONIX) IVP ONE (14:18)
[2023-08-04 14:23] LABS: NEUTROPHILS % (AUTO) 88.2 % (40.0-70.0)
[2023-08-04] MEDS ORDERED: ONDANSETRON HCL 4 MG/2 ML VIAL IVP PRN (14:30)
[2023-08-04] MEDS ORDERED: ALBUTEROL SULFATE 0.083% 2.5 MG/3 ML VIAL.NEB INH PRN (15:30)
[2023-08-04] MEDS ORDERED: IPRATROPIUM BROM 0.5 MG/2.5 ML VIAL.NEB (ATROVENT) INH PRN (15:30)
[2023-08-04] MEDS: METOCLOPRAMIDE HCL 10 MG/2 ML VIAL IVP ONE (15:30)
[2023-08-04] MEDS: MORPHINE 2 MG/ML INJ. SYRINGE IVP PRN (16:02)
[2023-08-04] MEDS: ONDANSETRON HCL 4 MG/2 ML VIAL IVP PRN (16:02)
[2023-08-04 16:16] LABS: BARBITURATE, URINE NEGATIVE (NEG <=200); BENZODIAZEPINE, URINE NEGATIVE (NEG <=150); CANNABINOID, URINE POSITIVE (NEG <=50); COCAINE, URINE NEGATIVE (NEG <=150); METHAMPHETAMINES SCREEN,URINE NEGATIVE (NEG <=500); OPIATE, URINE POSITIVE (NEG <=100); PHENCYCLIDINE SCREEN,URINE NEGATIVE (NEG <=25); UR TRICYCLIC ANTIDEPRESSANTS NEGATIVE (NEG <=300); URINE AMPHETAMINE NEGATIVE (NEG <=500); URINE METHADONE NEGATIVE (NEG <=200); URINE OXYCODONE SCREEN NEGATIVE (NEG <=100)
[2023-08-04 20:15] VITALS: BP_SYST 141; PULSE 79; RESP 18; TEMP 99.1; O2SAT 97
[2023-08-04 20:24] VITALS: BP_SYST 141; PULSE 78; RESP 20; TEMP 99; O2SAT 99
[2023-08-04] MEDS: PANTOPRAZOLE SODIUM 40 MG/VIAL (PROTONIX) IVP SCH (20:46)
[2023-08-04 21:18] VITALS: BP_SYST 133; O2SAT 97
[2023-08-04] MEDS: NACL 0.9% 1,000 ML IV SCH (21:35)
[2023-08-04] MEDS: PROCHLORPERAZINE EDISYLATE 10 MG/2 ML VIAL IVP PRN (23:19)
[2023-08-04] MEDS: cefTRIAXone 1 GM IVPB PREMIX 50 ML IV ONE (23:40)
[2023-08-04] MEDS: cefTRIAXone 1 GM in D5W 50 ML IV SCH (23:40)
[2023-08-04 23:54] LABS: CALCIUM 8.9 mg/dL (8.4-11.0); CREATININE 3.49 mg/dL (0.55-1.30); POTASSIUM 3.4 mmol/L (3.5-5.1)
[2023-08-04 23:59] LABS: BASOPHILS % (AUTO) 0.1 % (0.0-2.0); HEMATOCRIT 43.5 % (36-54); HEMOGLOBIN 15.3 g/dL (14.0-18.0); LYMPHOCYTES # (AUTO) 1.2 K/uL (1.0-5.5); LYMPHOCYTES % (AUTO) 5.8 % (20.5-51.5); MEAN CORPUSCULAR HEMOGLOBIN 34 pg (27-31); MEAN CORPUSCULAR HGB CONC 35 % (32-36); MEAN CORPUSCULAR VOLUME 95 fL (79.0-98.0); MONOCYTES # (AUTO) 1.9 K/uL (0.0-1.0); MONOCYTES % (AUTO) 8.9 % (1.7-9.3); NEUTROPHILS # (AUTO) 18.2 K/uL (1.8-7.7); NEUTROPHILS % (AUTO) 85.2 % (40.0-70.0); PLATELET COUNT (AUTO) 186 K/uL (130-430); RED BLOOD CELL COUNT(AUTO) 4.56 MIL/uL (4.2-6.2); RED CELL DISTRIBUTION WIDTH 12.2 % (9.0-15.0); WHITE BLOOD COUNT (AUTO) 21.4 K/uL (4.8-10.8)
[2023-08-05] VITALS (8 sets, daily range): BP systolic 101–141; PULSE 62–90; RESP 16–20; TEMP 97.5–99; O2SAT 96–99
[2023-08-05 05:59] LABS: BASOPHILS # (AUTO) 0.1 K/uL (0.0-0.2); BASOPHILS % (AUTO) 0.3 % (0.0-2.0); EOSINOPHILS % (AUTO) 0.3 % (0.0-4.0); HEMATOCRIT 40.3 % (36-54); HEMOGLOBIN 14.1 g/dL (14.0-18.0); LYMPHOCYTES # (AUTO) 1.4 K/uL (1.0-5.5); LYMPHOCYTES % (AUTO) 8.3 % (20.5-51.5); MEAN CORPUSCULAR HEMOGLOBIN 33 pg (27-31); MEAN CORPUSCULAR HGB CONC 35 % (32-36); MEAN CORPUSCULAR VOLUME 95 fL (79.0-98.0); MONOCYTES # (AUTO) 1.6 K/uL (0.0-1.0); MONOCYTES % (AUTO) 9.5 % (1.7-9.3); NEUTROPHILS # (AUTO) 14.1 K/uL (1.8-7.7); NEUTROPHILS % (AUTO) 81.6 % (40.0-70.0); PLATELET COUNT (AUTO) 183 K/uL (130-430); RED BLOOD CELL COUNT(AUTO) 4.23 MIL/uL (4.2-6.2); RED CELL DISTRIBUTION WIDTH 12.2 % (9.0-15.0); WHITE BLOOD COUNT (AUTO) 17.3 K/uL (4.8-10.8)
[2023-08-05 06:26] LABS: BILIRUBIN,URINE NEGATIVE (NEGATIVE); COLOR,URINE YELLOW (YELLOW); GLUCOSE,URINE NEGATIVE (NEGATIVE); KETONES,URINE NEGATIVE (NEGATIVE); LEUKOCYTE ESTERASE ,URINE NEGATIVE (NEGATIVE); NITRITE, URINE NEGATIVE (NEGATIVE); PROTEIN URINE NEGATIVE (NEGATIVE); UROBILINOGEN,URINE 0.2 (0.2-1.0)
[2023-08-05 06:31] LABS: BLOOD, URINE NEGATIVE (NEGATIVE); CLARITY/URINE CLEAR (CLEAR)
[2023-08-05 06:35] LABS: CALCIUM 8.7 mg/dL (8.4-11.0); CREATININE 2.17 mg/dL (0.55-1.30); PHOSPHORUS 3.6 mg/dL (2.7-4.5); POTASSIUM 3.4 mmol/L (3.5-5.1)
[2023-08-05 07:44] LABS: CKMB RELATIVE INDEX 0.8 (0.0-2.9); CREATINE KINASE MB 3.2 ng/mL (0-3.6)
[2023-08-05] MEDS: POTASSIUM CHLORIDE 20 MEQ TABLET.ER PO ONE (08:47)
[2023-08-05 10:33] LABS: BARBITURATE, URINE NEGATIVE (NEG <=200); METHAMPHETAMINES SCREEN,URINE NEGATIVE (NEG <=500); URINE AMPHETAMINE NEGATIVE (NEG <=500); URINE METHADONE NEGATIVE (NEG <=200)
[2023-08-05 10:34] LABS: BENZODIAZEPINE, URINE NEGATIVE (NEG <=150); CANNABINOID, URINE POSITIVE (NEG <=50); COCAINE, URINE NEGATIVE (NEG <=150); OPIATE, URINE POSITIVE (NEG <=100); PHENCYCLIDINE SCREEN,URINE NEGATIVE (NEG <=25); UR TRICYCLIC ANTIDEPRESSANTS NEGATIVE (NEG <=300); URINE OXYCODONE SCREEN NEGATIVE (NEG <=100)
[2023-08-05] MEDS: LORazepam 2 MG/ML VIAL IVP PRN (11:09)
[2023-08-05] MEDS: HYDROmorphone 2 MG/ML VIAL IVP PRN (18:01)
[2023-08-06 00:06] VITALS: BP_SYST 129; PULSE 68; RESP 16; TEMP 97.3; O2SAT 96
[2023-08-06 07:05] LABS: CALCIUM 8.5 mg/dL (8.4-11.0); CREATININE 1.04 mg/dL (0.55-1.30); POTASSIUM 3.5 mmol/L (3.5-5.1)
[2023-08-06 07:26] LABS: BASOPHILS % (AUTO) 0.4 % (0.0-2.0); EOSINOPHILS # (AUTO) 0.1 K/uL (0.0-0.4); EOSINOPHILS % (AUTO) 1.8 % (0.0-4.0); HEMATOCRIT 35.1 % (36-54); HEMOGLOBIN 12.3 g/dL (14.0-18.0); LYMPHOCYTES # (AUTO) 2.1 K/uL (1.0-5.5); LYMPHOCYTES % (AUTO) 27.1 % (20.5-51.5); MEAN CORPUSCULAR HEMOGLOBIN 34 pg (27-31); MEAN CORPUSCULAR HGB CONC 35 % (32-36); MEAN CORPUSCULAR VOLUME 96 fL (79.0-98.0); MONOCYTES # (AUTO) 0.8 K/uL (0.0-1.0); MONOCYTES % (AUTO) 11.1 % (1.7-9.3); NEUTROPHILS # (AUTO) 4.6 K/uL (1.8-7.7); NEUTROPHILS % (AUTO) 59.6 % (40.0-70.0); PLATELET COUNT (AUTO) 139 K/uL (130-430); RED BLOOD CELL COUNT(AUTO) 3.64 MIL/uL (4.2-6.2); RED CELL DISTRIBUTION WIDTH 12.1 % (9.0-15.0)
[2023-08-06 07:28] LABS: WHITE BLOOD COUNT (AUTO) 7.7 K/uL (4.8-10.8)
[2023-08-06 08:00] VITALS: BP_SYST 120; PULSE 76; RESP 18; TEMP 97.8; O2SAT 97
[2023-08-06 08:44] VITALS: O2SAT 97
[2023-08-06 11:45] VITALS: BP_SYST 116; PULSE 70; RESP 17; TEMP 98.1; O2SAT 98
[2023-08-06 16:30] VITALS: BP_SYST 124; PULSE 79; RESP 18; TEMP 97.5; O2SAT 95
[2023-08-06 20:03] VITALS: BP_SYST 124; PULSE 70; RESP 18; TEMP 99.5
[2023-08-07 00:20] VITALS: BP_SYST 119; PULSE 76; RESP 19; TEMP 97.5; O2SAT 95
[2023-08-07 06:57] LABS: CALCIUM 8.1 mg/dL (8.4-11.0); CREATININE 0.98 mg/dL (0.55-1.30); POTASSIUM 3.7 mmol/L (3.5-5.1)
[2023-08-07 08:02] VITALS: BP_SYST 127; PULSE 71; RESP 18; TEMP 97.5; O2SAT 97
[2023-08-07 08:10] VITALS: BP_SYST 127; PULSE 71; O2SAT 97
[2023-08-07 08:30] VITALS: O2SAT 97
[2023-08-07] MEDS ORDERED: FAMO20TA8 PO (09:41)
[2023-08-07] MEDS ORDERED: HYDR-3917 PO (09:42)
[2023-08-07 11:26] VITALS: BP_SYST 127; PULSE 71; RESP 20; TEMP 97.5; O2SAT 97
[2023-08-07] MEDS ORDERED: FAMO-132 PO (12:35)
== END 2023-08-07 11:50 | disposition home or self-care (01) | DRG 720 ==
LOC: SED 11:38 → STU 13:54
PROVIDERS: ADMIT Internal Medicine; ATTEND Internal Medicine
DX: A41.9 Sepsis, unspecified organism (principal); N17.0 Acute kidney failure with tubular necrosis; I21.A1 Myocardial infarction type 2; K29.01 Acute gastritis with bleeding; I30.9 Acute pericarditis, unspecified; E86.0 Dehydration; K52.9 Noninfective gastroenteritis and colitis, unspecified; F19.90 Other psychoactive substance use, unspecified, uncomplicated; Z79.899 Other long term (current) drug therapy
CPT/HCPCS: 36415; 80048; 80076; 80307; 81001; 81003; 82550; 82553; 83605; 83690; 83735; 84100; 84484; 85025; 85651; 87040; 93005; 93306; 99291; C9113; G0378; J0360; J0696; J0780; J1170; J2060; J2270; J2405; J2543; J7060

== ENCOUNTER 2024-02-13 12:44 | Emergency (ER) | payer OTHER ==
[~2024-02-13] VITALS: Ht 185.4 cm; Wt 58.1 kg
[~2024-02-13 12:44] MED LIST changes: -AUG875 PO; -DEC4 PO; +FAMO-132 PO; -HYDR-3917 PO; -IBUP-1971 PO; -OMEP-268 PO
[2024-02-13 13:17] VITALS: BP_SYST 123; PULSE 98; RESP 18; TEMP 98.2; O2SAT 100
[2024-02-13] MEDS: KETOROLAC TROMETHAMINE 30 MG VIAL IM ONE (14:50)
[2024-02-13] MEDS ORDERED: IBUP-1969 PO (14:50)
== END 2024-02-13 15:22 | disposition home or self-care (01) ==
LOC: SED 12:44
DX: S43.491A Other sprain of right shoulder joint, initial encounter (principal); S20.219A Contusion of unspecified front wall of thorax, initial encounter; M54.2 Cervicalgia; K21.9 Gastro-esophageal reflux disease without esophagitis; Z79.899 Other long term (current) drug therapy; V43.62XA Car passenger injured in collision with other type car in traffic accident, initial encounter; Y93.89 Activity, other specified; Y92.89 Other specified places as the place of occurrence of the external cause; Y99.8 Other external cause status
CPT/HCPCS: 99284; 71046; 72040; 73030; 96372; J1885